=== PATIENT | male | born 1980 | race Caucasian/White ===

== ENCOUNTER 2020-11-14 20:38 | Emergency (ER) | payer OTHER ==
[~2020-11-14 20:38] MED LIST: FLEXERIL10 MG PO
[2020-11-14 20:56] LABS: BASOPHIL 0.6 % (0-2); EOSINOPHIL 1.3 % (0-5); HCT 45.6 % (42.0-52.0); HGB 15.9 g/dl (13.2-18.0); LYMPHOCYTE 49.8 % (15-48); MCH 30.6 pg (25.0-31.0); MCHC 34.9 g/dL (32.0-36.0); MCV 87.9 fL (78.0-100.0); MONOCYTE 12.1 % (0-12); MPV 10.3 fL (6.0-9.5); NRBC 0; PLT 239 K/uL (150-400); RBC 5.19 M/uL (4.70-6.00); RDW 11.8 % (11.5-14.0); WBC 12.4 K/uL (4.0-10.5)
[2020-11-14 20:58] LABS: NEUTROPHIL 35.9 % (41-80)
[2020-11-14 21:04] LABS: INR 1.12 (0.9-1.2); PROTHROMBIN TIME 13.8 SECONDS (11.8-13.4); PTT 22.2 SECONDS (24.4-34.7)
[2020-11-14 21:12] LABS: ALBUMIN 4.1 g/dL (3.4-5.0); BILIRUBIN - TOTAL 0.4 mg/dL (0.2-1.0); C-REACTIVE PROTEIN 0.2 mg/dL (<=0.90); CREATININE 0.88 mg/dL (0.67-1.17); GLOBULIN (CALCULATION) 3.8 g/dL; TOTAL PROTEIN 7.9 g/dL (6.4-8.2)
[2020-11-14 21:16] LABS: PRO-BNP 21 pg/mL (<125)
[2020-11-14 21:36] LABS: LACTIC ACID 3.7 mmol/L (0.4-1.9)
[2020-11-15] MEDS ORDERED: MEDROL 4MG DOSEP4 MG PO (04:48)
[2020-11-15] MEDS ORDERED: ATARAX25 MG PO (04:48)
[2020-11-15] MEDS ORDERED: PEPCID AC20 MG PO (04:48)
[2020-11-15] MEDS ORDERED: EPIPEN 2-P0.3 MG/0.3 IM (04:48)
== END 2020-11-15 05:19 | disposition home or self-care (01) ==
LOC: FER 20:38
PROVIDERS: Emergency Medicine Emergency Medical Services
DX: T78.2XXA Anaphylactic shock, unspecified, initial encounter (principal); R07.9 Chest pain, unspecified; E87.6 Hypokalemia; R00.0 Tachycardia, unspecified; Z20.822 Contact with and (suspected) exposure to COVID-19
CPT/HCPCS: 36415; 70450; 70490; 71045; 80053; 83605; 83880; 84484; 85025; 85610; 85730; 86140; 93005; 96372; G0480; J0171; J0692; J1200; J2060; J2405; J2930; J7030; U0002